=== PATIENT | male | born 1980 | race Caucasian/White ===

== ENCOUNTER → 2020-10-04 12:07 | Outpatient (CLI) | payer OTHER, SELFPAY ==
--- NOTE | 2020-10-04 | DI.RAD.S_ITS ---
PROCEDURE: FL ARTHROGRAM HIP RT INDICATIONS: RIGHT SHOULDER PAIN, RIGHT HIP PAIN TECHNIQUE: The indications, alternatives, benefits, risks, and complications of the procedure were explained to the patient. Written informed consent was obtained and placed in the chart. The hip was examined fluoroscopically with the legs fixed in slight internal rotation, and a site for needle placement chosen for entry into the hip joint from an anterior approach. Care was taken to locate the common femoral artery and vein beforehand. The skin was prepped and draped in a sterile fashion, and 1% Lidocaine infiltrated from skin down to joint capsule. A spinal needle was inserted into the joint, and a small amount of iodinated contrast media injected to confirm intra-articular placement of the needle tip. This was followed by approximately 10 mL dilute solution of a gadolinium containing MR contrast agent. The needle was removed and a dressing was applied. The patient was given postprocedural instructions and sent to the MR suite for imaging. FINDINGS: A single fluoroscopic spot image demonstrates intra-articular location of injected iodinated contrast. IMPRESSION: Successful fluoroscopically guided administration of dilute Gadolinium solution into the hip joint for MR arthrogram. Dictated by: Delmer Monteiro M.D. on 10/04/2020 at 16:40 Approved by: Delmer Monteiro M.D. on 10/04/2020 at 16:40
--- NOTE | 2020-10-04 | DI.MRI.S_ITS ---
PROCEDURE: MR SHOULDER RT W CON INDICATIONS: RIGHT SHOULDER PAIN, RIGHT HIP PAIN TECHNIQUE: After the administration of 12 mL of dilute intra-articular Gadolinium contrast, oblique coronal T1 and T2 spin echo with fat saturation, oblique sagittal T1 spin echo with and without fat saturation, oblique sagittal T2 fast spin echo with fat saturation, axial T1 spin echo with fat saturation through the shoulder. COMPARISON: None. FINDINGS: Image quality: Excellent. Rotator cuff: The supraspinatus, infraspinatus, and subscapularis tendons appear intact throughout. Mild thickening of the infraspinatus tendon with increased internal signal compatible with mild tendinosis. No rotator cuff muscle atrophy on sagittal images. Bones and bursae: No bone marrow contusions or fractures. Mild glenohumeral joint osteoarthritic degeneration. Moderate acromioclavicular joint osteoarthritic degeneration. The acromion demonstrates conventional anatomy, without an os acromiale. Capsule and soft tissues: Undercutting of the superior labrum noted compatible with tear. The glenohumeral ligaments appear intact. Middle glenohumeral ligament is thick with slightly hypoplastic anterior labrum compatible with Clint complex. The long head of the biceps tendon demonstrates normal location and morphology. The rotator interval appears normal, without fibrosis. The coracohumeral ligament is of normal thickness. Thickening of the synovium in the axillary pouch compatible with synovitis. Small, approximately 3-4 millimeter in maximum diameter intra-articular loose body noted in the axillary pouch. IMPRESSION: 1. Superior labral tear. 2. 3-4 millimeter intra-articular loose body. 3. Glenohumeral joint synovitis. 4. 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 5. No rotator cuff tear. 6. Mild supraspinatus tendinosis. Dictated by: Teodora Blanco MD, PhD on 10/04/2020 at 15:08 Approved by: Teodora Blanco MD, PhD on 10/05/2020 at 10:46
--- NOTE | 2020-10-04 | DI.RAD.S_ITS ---
PROCEDURE: FL ARTHROGRAM SHOULDER RT INDICATIONS: RIGHT SHOULDER PAIN, RIGHT HIP PAIN TECHNIQUE: The indications, alternatives, benefits, risks, and complications of the procedure were explained to the patient. Written informed consent was obtained and placed in the chart. The shoulder was examined fluoroscopically and a site for needle placement chosen for entry into the glenohumeral joint from an anterior approach. The skin was prepped and draped in a sterile fashion, and 1% lidocaine infiltrated from skin down to joint capsule. A spinal needle was inserted into the glenohumeral joint, and a small amount of iodinated contrast media injected to confirm intra-articular placement of the needle tip. This was followed by approximately 12 mL dilute solution of a gadolinium containing MR contrast agent. The needle was removed and a dressing was applied. The patient was given postprocedural instructions and sent to the MR suite for MR imaging. FINDINGS: A single fluoroscopic spot image demonstrates intra-articular location of injected iodinated contrast. IMPRESSION: Successful fluoroscopically guided administration of dilute Gadolinium solution into the shoulder joint for MR arthrogram. Dictated by: Delmer Monteiro M.D. on 10/04/2020 at 13:37 Approved by: Delmer Monteiro M.D. on 10/04/2020 at 13:38
--- NOTE | 2020-10-04 | DI.MRI.S_ITS ---
PROCEDURE: MR HIP RT W CON INDICATIONS: RIGHT SHOULDER PAIN, RIGHT HIP PAIN TECHNIQUE: After the administration of 10 mL of dilute intra-articular Gadolinium contrast, coronal STIR of the bony pelvis; coronal and oblique axial T1 spin echo with fat saturation, axial T2 fast spin echo with fat saturation, sagittal T1 spin echo with and without fat saturation of the involved hip. COMPARISON: [facility], MR, HIP WITH CONTRAST, 09/10/2012, 14:59. FINDINGS: Image quality: Excellent. Bones and joints: No fracture identified. Sacroiliac joints are unremarkable in signal intensity. There is lower lumbar spondylosis and facet arthropathy. No pathologic hip joint effusion. No evidence of osteonecrosis. Tendons and ligaments: The gluteus medius and minimus tendons appear intact, without associated muscle atrophy. Proximal iliotibial band intact. Iliopsoas tendon intact. Origin of the hamstring tendon intact. The straight and reflected heads of the rectus femoris muscle origin appear intact Ligamentum teres appears intact where visualized. Labrum: Previously described anterosuperior labral tear is less conspicuous in terms of T2 hyperintensity likely representing subsequent interval scarring and fibrosis. There is adjacent subchondral sclerosis, signal change and partial thickness chondral loss. The alpha angle of the femur is within normal limits at less than 55 degrees. Soft tissues: Visualized muscles demonstrate normal bulk and internal signal. Quadratus femoris muscle normal. Proximal sciatic neurovascular bundle appears normal adjacent to the hamstring tendons. No free pelvic fluid. Bladder normal. Genitourinary structures and bowel loops appear normal where visualized. IMPRESSION: Blunted appearance of the previously described anterosuperior labral tear likely reflective of chronic subsequent scarring and fibrosis. Slight interval progression of adjacent right hip degenerative changes and partial thickness chondral loss . Dictated by: Johnson Nguyễn M.D. on 10/04/2020 at 16:08 Approved by: Johnson Nguyễn M.D. on 10/04/2020 at 16:17
== END ==
PROVIDERS: Referring Provider Specialist; Visit Provider Specialist
DX: M25.511 Pain in right shoulder (principal); M25.551 Pain in right hip; M47.816 Spondylosis without myelopathy or radiculopathy, lumbar region; S73.191A Other sprain of right hip, initial encounter; S43.491A Other sprain of right shoulder joint, initial encounter; M19.012 Primary osteoarthritis, left shoulder; M65.811 Other synovitis and tenosynovitis, right shoulder; M24.011 Loose body in right shoulder
CPT/HCPCS: 23350; 27093; 73040; 73222; 73722; 77002

== ENCOUNTER 2023-05-28 09:26 | Emergency (ER) | payer OTHER, SELFPAY ==
--- NOTE | 2023-05-28 09:29 | DI.US.S_ITS ---
PROCEDURE: US SCROTUM INDICATIONS: RIGHT TESTICLE PAIN TECHNIQUE: Real-time scanning was performed of the scrotum and testicles, with image documentation. Color and pulse Doppler interrogation was performed of both testicles. COMPARISON: None. FINDINGS: Right: Testicle is normal in size at 4.6 x 3.6 x 2.5 cm, and homogenous in echotexture. Epididymis appears heterogeneous with increased vascularity. More focal appearing region of heterogeneity present at the epididymal tail, 1.0 cm. No hydrocele or varicoceles. Overlying scrotal skin is normal in thickness. Left: Testicle is normal in size at 4.7 x 3.5 x 2.4 cm, and homogeneous in echotexture. Epididymis is unremarkable in overall size and morphology. 7 mm cyst near the epididymal head. Small septated hydrocele. No varicoceles. Overlying scrotal skin is normal in thickness. Doppler: Color and pulse Doppler demonstrate normal and symmetric arterial flow in both testicles. IMPRESSION: 1. No evidence of testicular torsion. 2. Findings suggestive of right epididymitis. A more focal appearing region of heterogeneity is present at the right epididymal tail, unclear if related to changes of epididymitis versus presence of a epididymal mass. Follow-up ultrasound may be helpful for re-evaluation, for example in 6-8 weeks or other interval at clinical discretion. 3. Small nonspecific complex left hydrocele. Dictated by: Ezra Montana M.D. on 05/28/2023 at 10:39 Approved by: Ezra Montana M.D. on 05/28/2023 at 10:45
[2023-05-28 09:42] VITALS: BP 148/83; PULSE 90; RESP 18; TEMP 37.7; O2SAT 99; BMI 27.1
--- NOTE | 2023-05-28 09:59 | ED.GENADULT ---
HPI - General Adult General Chief complaint: Urogenital-Male Stated complaint: pain in rt testicle; swollen; hard nodule Time Seen by Provider: 05/28/23 09:29 Source: patient Mode of arrival: Ambulatory History of Present Illness HPI narrative: 42-year-old male nonsmoker without chronic medical history presents for evaluation of a painful right testicle for the past 3 days. He denies any trauma or injury he is sexually active with his only. He denies any urinary complaints such as dysuria, frequency or urgency. Denies any penile discharge. He states he has pain but denies any obvious significant swelling of his right testicle. He does comment on a palpable hard nodule on the top of his right testicle. He denies any change in bowel habits. The pain is persistent and made worse by movement and palpation and improves with rest Related Data Previous Rx's Medication Instructions Recorded levofloxacin 500 mg tablet 500 mg PO DAILY #10 tabs 05/28/23 Allergies Allergy/AdvReac Type Severity Reaction Status Date / Time No Known Drug Allergies Allergy Verified 05/28/23 09:47 Review of Systems Review of Systems Narrative: GENERAL: Denies chills, fatigue, malaise, fever, sweats. HEENT: Denies sinus pain, ear pain, sore throat, difficulty swallowing, dizziness. RESPIRATORY: Denies dyspnea, cough, wheezing, hemoptysis, sputum. CARDIOVASCULAR: Denies chest pain, palpitations, orthopnea, edema, GASTROINTESTINAL: Denies nausea, vomiting, abdominal pain, diarrhea, constipation, melena. : See HPI MUSCULOSKELETAL: denies weakness, joint pain, or bony pain SKIN: Denies rash, skin lesions, or other NEUROLOGIC: Denies weakness, headache, numbness, change in speech, confusion, seizures, incoordination. PSYCHIATRIC: No concerning psychosocial issues. 12 point review of systems is negative except for those stated above Patient History Surgical History H/O vasectomy Social History Smoking Status: Never smoker Smoking Status: Never smoker alcohol intake frequency: 0-2 drinks per day Substance Use Type: does not use Exam Narrative Exam Narrative: GEN: AOx3 and in mild distress EYES: Pupils are equal, round, and reactive to light and accommodation. Extraoccular muscles are intact bilaterally. There is no subconjunctival hemorrhage or exudate. CHEST: Lungs are clear to auscultation bilaterally and free of wheezes, rales, or rhonchi. Heart rate is regular rhythm, there are no murmurs, clicks, rubs, or gallops. There is no chest wall tenderness. ABD: Abdomen is soft and nontender. There is no guarding or rebound. Bowel sounds are normal in all 4 quadrants. There is no mass or organomegaly. : Examined in standing position, there is minimal tenderness and a palpable nodule on the superior pole of right testicle, no discoloration, scrotal erythema, induration or other abnormal findings. No change in pain with elevation of testicle. No drainage EXT: Full painless ROM of all extremities with no loss of sensation or strength. SKIN: Warm, pink, and dry. No erythema or rash Initial Vital Signs Initial Vital Signs: Vital Signs Temperature 99.9 F H 05/28/23 09:42 Pulse Rate 90 05/28/23 09:42 Respiratory Rate 18 05/28/23 09:42 Blood Pressure 148/83 H 05/28/23 09:42 Pulse Oximetry 99 05/28/23 09:42 Oxygen Delivery Method Room Air 05/28/23 09:42 Course Orders Ordered: ED Orders 05/28/23 09:29 US scrotum Stat Vital Signs Vital signs: Vital Signs - 8 hr 05/28/23 09:42 Temperature 99.9 F H Pulse Rate 90 Respiratory Rate 18 Blood Pressure 148/83 H Pulse Oximetry 99 Oxygen Delivery Method Room Air Medical Decision Making Lab Data Labs: Urine Dip Bedside Urine Glucose Negative Bedside Urine Bilirubin - Negative Bedside Urine Ketone - Negative Urine Specific [place] 1.005 Bedside Urine Occult Blood - Negative Bedside Urine pH 7.5 Bedside Urine Protein - Negative Bedside Urine Urobilinogen - Negative Bedside Urine Nitrite - Negative Bedside Urine Leukocytes - Negative Esterase Point of care testing: Urine Dip Bedside Urine Glucose Negative Bedside Urine Bilirubin - Negative Bedside Urine Ketone - Negative Urine Specific [place] 1.005 Bedside Urine Occult Blood - Negative Bedside Urine pH 7.5 Bedside Urine Protein - Negative Bedside Urine Urobilinogen - Negative Bedside Urine Nitrite - Negative Bedside Urine Leukocytes - Negative Esterase MDM Narrative Medical decision making narrative: [42] year old patient presents with 3 days of right testicle pain Multiple etiologies for patient's symptoms considered including, but not limited to: [Torsion versus epididymitis versus orchitis versus hydrocele versus varicocele versus other] Prior Charts reviewed in our EMR Primary Historian: patient Labs reviewed and interpreted by myself: Urine without signs of infection Imaging reviewed: Ultrasound demonstrates epididymitis with possible small epididymal mass Patient's history and physical exam are reassuring. There is no trauma or injury, no discharge, patient is sexually active in monogamous relationship. No signs of infection in urine. Ultrasound shows epididymal swelling with questionable mass. We did discuss treating for epididymitis with Levaquin. Referral sent to urology. Importance of follow-up to follow this mass related to patient who converses understanding by verbally recounting the instructions Findings and discharge diagnosis discussed with patient/family followed by verbalization of understanding Return precautions discussed with patient/family whom verbalize understanding of diagnosis and plan Discharge Plan Departure Patient Disposition: Home Clinical Impression: Acute epididymitis, Epididymal mass Instructions: DI for Epididymitis Activity Restrictions/Additional Instructions: *You have been diagnosed with [right testicular epididymitis. No evidence of torsion] *What to do: *Please continue to take your regular medications as directed. [x ] New medication prescriptions sent to your pharmacy: [ [facility] [ ] New medication written as a paper prescription [ ] No new medications given * please follow-up with Dr. Oh [facility]. Please call the office today, let them know you were seen in the emergency department and we would like you seen in follow-up. The clinic will help you follow the possible epididymal mass that we noted on ultrasound *Return to Emergency Department if you should have any new, worsening or concerning symptoms, such as [fever greater than 101 F, shaking chills, worsening pain, persistent vomiting or other bothersome symptoms] Prescriptions: New levofloxacin 500 mg tablet 500 mg PO DAILY Qty: 10 0RF Referrals: Lew Oh MD [Physician] - Miscellaneous,MD Purnima [Primary Care Provider] - Stand Alone Forms: Patient Portal/API
[2023-05-28 11:23] VITALS: BP 123/69; PULSE 66; RESP 16; O2SAT 99
== END 2023-05-28 11:24 | disposition home or self-care (01) ==
PROVIDERS: Emergency Provider Emergency Medicine
DX: N45.1 Epididymitis (principal); N50.89 Other specified disorders of the male genital organs
CPT/HCPCS: 76870; 81003; 93975; 99283